=== PATIENT | male | born 1975 | race Caucasian/White ===

== ENCOUNTER 2023-04-20 10:01 | Emergency (ER) | payer OTHER, SELFPAY ==
--- NOTE | 2023-04-20 10:04 | ED.GENADULT ---
HPI - General Adult General Chief complaint: Ear Stated complaint: Double Ear Infection Time Seen by Provider: 04/20/23 10:20 Source: patient, RN notes reviewed and old records reviewed Mode of arrival: ambulatory Limitations: no limitations History of Present Illness HPI narrative: 48-year-old male presents to the [facility] with complaints of bilateral ear pain Started Thursday in the left ear, right ear started today Muffled hearing Patient reports that he felt a pop in the right ear just prior to arrival and it started draining. Right ear is now pain-free Onset (ago): day(s) (3) Treatments prior to arrival: none Related Data Home Medications Medication Instructions Recorded Confirmed cyclobenzaprine 5 mg tablet 5 mg 04/20/23 furosemide 40 mg tablet 40 mg 04/20/23 furosemide 40 mg tablet mg 04/20/23 losartan 100 mg tablet 100 mg 04/20/23 metoprolol succinate 25 mg 25 mg PO 04/20/23 tablet,extended release 24 hr pantoprazole 40 mg tablet,delayed 40 mg PO 04/20/23 release phentermine 15 mg capsule 15 mg 04/20/23 trazodone 100 mg tablet 100 mg 04/20/23 Allergies Allergy/AdvReac Type Severity Reaction Status Date / Time No Known Allergies Allergy Verified 04/20/23 10:12 Review of Systems Review of Systems: All systems reviewed & are unremarkable except as noted in HPI and below Constitutional: Constitutional: Reports no additional constitutional complaints Eyes: Eyes: Reports no additional eye complaints ENT: Reports as per HPI, Reports ear discharge (right) and Reports otalgia Cardiovascular: Cardiovascular: Reports no additional cardiovascular complaints, Denies chest pain and Denies dyspnea Respiratory: Respiratory: Reports no additional respiratory complaints, Denies chest congestion, Denies cough and Denies dyspnea Gastrointestinal: Gastrointestinal: Reports no additional gastrointestinal complaints, Denies abdominal pain, Denies nausea and Denies vomiting Musculoskeletal: Musculoskeletal: Reports no additional musculoskeletal complaints Integumentary/Breasts: Skin/Breast: Reports system reviewed and no additional complaints, except as docu Neurologic: Reports system reviewed and no additional complaints, except as documented Psychiatric: Psychiatric: Reports no additional psychiatric complaints Allergic/Immunologic: Allergic/Immunologic: Reports no additional allergic/immunologic complaints PMFSH Past Medical History Medical History (Updated 04/20/23 @ 17:36 by Gabbie Frias APRN) H/O gastroesophageal reflux (GERD) History of high blood pressure Comments At the time of my signature, I reviewed and agree with the nursing past medical, surgical, social, and family history. There is no relevant family history pertinent to the patient complaint. Exam Const: General: cooperative, healthy appearing, comfortable, no acute distress, well developed, alert and well nourished Nutritional Appearance: well nourished and obese morbidly obese Orientation/consciousness: patient oriented x3 Limitations: no limitations HENMT: Head: normal to inspection Ears: hearing grossly normal bilaterally, external ears normal and TM abnormal bulging on the left, erythematous bilateral, with loss of landmarks bilateral and perforated with purulent discharge on the right Face/Nose/Sinus: Normal external nose present, Normal nares present, Normal nasal mucous membranes and turbinates present, normal facial exam and face symmetric Face and sinus: normal facial exam and face symmetric Mouth: Yes Normal oral and palatal mucosa present, Yes lip normal and Yes moist mucous membranes Throat: posterior oropharynx normal and uvula midline Eyes: General: appearance normal, both eyes and all related structures Alignment and Position: alignment normal Periorbital: periorbital findings normal Pupils: Equal, round and reactive pupils present EOM: EOMs intact bilaterally Neck: Neck: normal visual inspection, full RO
[2023-04-20 10:14] VITALS: BP 149/78; PULSE 82; RESP 20; TEMP 36.9; O2SAT 98
== END 2023-04-20 10:47 | disposition home or self-care (01) ==
PROVIDERS: Emergency Provider Nurse Practitioner; PCP Family Medicine
DX: H66.93 Otitis media, unspecified, bilateral (principal); H72.91 Unspecified perforation of tympanic membrane, right ear; K21.9 Gastro-esophageal reflux disease without esophagitis; I10 Essential (primary) hypertension
CPT/HCPCS: 99213; G0463